=== PATIENT | male | born 1970 | race Caucasian/White ===

== ENCOUNTER 2016-07-07 08:53 | Emergency (ER) | payer BC ==
--- NOTE | 2016-07-07 10:53 | RAD ---
INDICATION: Left shoulder pain. TECHNIQUE: 3 views of the left shoulder were obtained. FINDINGS: The bones are in normal alignment. No acute fracture is seen. There is a calcific density which projects superior to the glenoid process of the scapula measuring 4 mm in size possibly representing an old fracture fragment or soft tissue calcification. Joint spaces appear maintained, no arthritic change is seen. IMPRESSION: SMALL CALCIFICATION SUPERIOR TO THE GLENOID PROCESS OF THE SCAPULA OTHERWISE UNREMARKABLE STUDY.
[2016-07-07 11:37] VITALS: BP 128/74
--- NOTE | 2016-07-07 16:31 | ED ---
Upper Extremity Pain - HPI Summary HPI Summary: Patient presents to ED with CC of left shoulder pain with abduction and adduction of the shoulder. He notes to anterior pain over the left shoulder which was sudden in onset and with no associated trauma or injury. He admits to several years of repetitive overhead motion with both arms, and would favor the arm which was not in pain. He has never felt pain like this before and when his shoulder would be in discomfort, he was still able to move it without complication. Today, he states he feels he is unable to abduct the arm and feels pain over the anterior portion of the arm when he tries. Denies history of gout or previous injury to the arm. He is otherwise healthy. - History of Current Complaint Chief Complaint: EDExtremityUpper Stated Complaint: LEFT SHOULDER PAIN Time Seen by Provider: 07/07/16 08:57 Hx Obtained From: Patient Mechanism Of Injury: Unknown Onset/Duration: Started Hours Ago Timing: Constant Severity Initially: Moderate Severity Currently: Moderate Pain Location: Shoulder Character: Sharp, Aching, Burning Aggravating Factor(s): Movement, Internal/External Rotation, Abduction Alleviating Factor(s): Rest Associated Signs & Symptoms: Positive: Weakness Related History: Dominant Hand Right - Risk Factors Non-Orthopedic Risk Factor: Negative DVT Risk Factors: Negative Septic Arthritis Risk Factor: Negative Compartment Syndrome Risk Factors: Pain - Allergies/Home Medications Allergies/Adverse Reactions: Allergies Allergy/AdvReac Type Severity Reaction Status Date / Time SEASONAL HAYFEVER Allergy SNEEZING, Uncoded 07/07/16 08:58 ITCHY WATERY EYES PMH/Surg Hx/FS Hx/Imm Hx Previously Healthy: Yes Sensory History: Reports: Hx Contacts or Glasses - GLASSES Denies: Hx Hearing Aid Opthamlomology History: Reports: Hx Contacts or Glasses - GLASSES - Surgical History Surgery Procedure, Year, and Place: LEFT INGUINAL HERNIA REPAIR, [facility] Hx Anesthesia Reactions: No - Immunization History Hx Pertussis Vaccination: No Immunizations Up to Date: Yes Infectious Disease History: No Infectious Disease History: Denies: Traveled Outside the [place] in Last 30 Days - Social History Occupation: Employed Full-time Lives: With Family Alcohol Use: Weekly Hx Substance Use: No Substance Use Type: Reports: None Hx Tobacco Use: Yes Smoking Status (MU): Former Smoker Amount Used/How Often: 1 PPD Length of Time of Smoking/Using Tobacco: 15 YEARS Have You Smoked in the Last Year: No Review of Systems Constitutional: Negative Eyes: Negative Cardiovascular: Negative Respiratory: Negative Positive: no symptoms reported, see HPI Positive: Arthralgia, Myalgia - left shoulder Skin: Negative Neurological: Negative Psychological: Normal All Other Systems Reviewed And Are Negative: Yes Physical Exam Triage Information Reviewed: Yes Vital Signs On Initial Exam: Initial Vitals Temp Pulse Resp Pulse Ox 97.2 F 63 18 100 07/07/16 08:55 07/07/16 08:55 07/07/16 08:55 07/07/16 08:55 Vital Signs Reviewed: Yes Appearance: Positive: Well-Appearing, No Pain Distress, Well-Nourished Skin: Positive: Warm, Skin Color Reflects Adequate Perfusion Neck: Positive: Supple, No Lymphadenopathy Respiratory/Lung Sounds: Positive: Clear to Auscultation, Breath Sounds Present Musculoskeletal: Positive: Limited @, Interruption @ - passive abduction, Pain @ - left anterior shoulder, Other - ROM limited with abduction; no sulcus sign, Neer test positive, hawkings fly test positive, empty can positive. Neurological: Positive: Sensory/Motor Intact, Speech Normal Psychiatric: Positive: Normal AVPU Assessment: Alert - Ana Coma Scale Coma Scale Total: 15 Diagnostics - Vital Signs Vital Signs Temp Pulse Resp BP Pulse Ox 07/07/16 11:36 97.5 F 64 18 128/74 07/07/16 08:57 97.6 F 65 18 138/80 100 07/07/16 08:55 97.2 F 63 18 100 - Laboratory Lab Statement: Any lab studies that have been ordered have been reviewed, and results considered in the medical decision making process. Course/Dx - Course Course Of Treatment: xray shows calcific tendonitis. Provider discussed in length the possibilities of acute onset anterior pain with no injury. Likely this is a cummulative overuse injury resulting in inflammation and stiffening of the joint with pain. Explained physical therapy and different use of the arm (lifestyle changes may be necessary) will prevent from worsening pain and inflammation. Encouraged follow up with Ortho for further evaluation. - Diagnoses Differential Diagnosis/HQI/PQRI: Positive: Contusion, Strain, Sprain Provider Diagnoses: Overuse injury Discharge - Discharge Plan Condition: Stable Disposition: HOME Prescriptions: Cyclobenzaprine TAB* [Flexeril TAB*] 10 mg PO BID PRN #14 tab PRN Reason: Pain Cyclobenzaprine TAB* [Flexeril TAB*] 10 mg PO BID PRN #14 tab PRN Reason: Pain Patient Education Materials: Calcific Tendinitis (ED) Referrals: Noman Emery MD [Primary Care Provider] - Additional Instructions: Sx: Calcific Tendinitis in the shoulder Follow up with Dr. Merida's office. Ibuprofen 600mg three times daily for 5 days. Take the flexeril as needed for muscle spasms and tightness. If symptoms become worse, come back to the ED or see your PCP right away Use a sling for your comfort. Work modifications will be needed for the next several days.
== END 2016-07-07 11:36 | disposition home or self-care (01) ==
LOC: ED 08:53
DX: M70.812 Other soft tissue disorders related to use, overuse and pressure, left shoulder (principal); M25.512 Pain in left shoulder; R53.1 Weakness; Z87.891 Personal history of nicotine dependence; Y93.9 Activity, unspecified
CPT/HCPCS: 99282